=== PATIENT | female | born 1980 | race Caucasian/White ===

== ENCOUNTER 2016-09-05 18:32 | Emergency (ER) | payer BC ==
--- NOTE | 2016-09-07 07:39 | ER ---
ADMIT: 09/05/2016 RM/LOC: ER [facility] MR#: [id number] [facility] [address], [place] [id number] KALI PEARL [address] [place] [address] Emergency Room Report SEX: F AGE: 35 : 1980 DATE: 09/05/2016 The patient is a 35-year-old female with chief complaint of epigastric abdominal pain which is mild to moderate and she had it since March 2016 and she is on medication, pantoprazole which did not resolve the pain and in the last 3 days, the pain increased. The patient also states that the pain waxes and wanes and is intermittent. Pain is not related to eating. PHYSICAL EXAMINATION: The patient is in no obvious distress, sitting on the bed. Stable vitals. Head, neck, and chest noncontributory and normal. Abdomen, the patient had no tenderness or rebound or guarding. Rest of the physical exam is noncontributory also. The patient also had normal breath sounds with normal S1 and S2 cardiac sounds. The lab works were insignificant except it was positive for H pylori. The patient already received GI cocktail which decreased the pain substantially. The patient was discharged to home with treatment for H. pylori infection. Fabrice Anderson MD/ ping JOB #: [id number] CC: Matthias Schaeffer MD, Attending Physician Harish Willis MD, Family Physician
== END 2016-09-05 22:50 | disposition home or self-care (01) ==
LOC: ER 18:32
DX: A04.8 Other specified bacterial intestinal infections (principal); K21.9 Gastro-esophageal reflux disease without esophagitis